=== PATIENT | male | born 1985 | race Caucasian/White ===

== ENCOUNTER → 2017-05-10 12:56 | Outpatient (POV) | payer MEDICAID, SELFPAY ==
[2017-05-10 13:09] VITALS: BP 192/110; PULSE 131; RESP 24; O2SAT 96; BMI 38.0
--- NOTE | 2017-05-10 14:15 | HMH.PMCON ---
Assessment and Plan (1) Chronic inflammatory demyelinating polyneuritis Current visit: Yes Status: Chronic Category: Medical Code(s): G61.81 - Chronic inflammatory demyelinating polyneuritis - Assessment and plan all Dx Assessment and Plan for all problems:: This patient and I had a long discussion about potential treatment options. Since the patient has not had significant relief from gabapentin or amitriptyline I believe that Lyrica 150 mg 1 p.o. twice daily will be very helpful in alleviating some of his symptoms. We also discussed about starting the process of a neurostimulator. I believe that this would be helpful for the patient's nerve pain. I answered the patient's questions we will begin the process of getting a psychological evaluation for trial. Patient is currently not on any blood thinners. Patient is not an injective candidate due to his long-term use of steroids. This note was dictated using voice recognition software and may contain errors or omissions HPI - Data of Consult Consult date: 05/10/17 Requesting Physician: Chana Pacheco APRN Primary Care Provider: Marychuy Martinez - Consult Narrative Reason for consult: Nerve pain in bilateral feet History of present illness: Mr. Escalante is a 32 year old male presents today to discuss his chronic nerve pain. Patient has been diagnosed with chronic inflammatory demyelinating polyneuropathy. 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 Patient states that most of his pain is shocklike with numbness and tingling and loss of sensation. Patient states it is in his bilateral feet and at times his hands. Patient's last episode Guyon Hector? was in 2016. Patient is interested in interventional means of controlling his pain. Patient is currently taking gabapentin 600 mg 3 times daily. And has been doing so for quite a while. He states it does help his pain however it does not alleviated enough for him to have restful night sleep. Patient also has some anxiety and takes BuSpar for this. Patient rates his pain an 8 out of 10. Patient states that walking increases his pain while his medication decreases his pain. CC: Chana Pacheco APRN [facility] History I have reviewed the patient's past medical history: Yes Comment: CIDP, anxiety Other Surgeries: Yes: Other Comment: Ankle, arm, knee - *Social History Educational Level: Attended High School Smoking Status: Current every day smoker Tobacco Type: cigarettes # Packs/Day (cigarettes): 1 Alcohol Intake: never Occupational Status: disabled - Psychiatric History Expresses thoughts of harming self/others: None Suicide Plan Description: No Plan *Family Hx:: Diabetes, Heart Attack Review of Systems - Review of Systems ROS General: no recent weight change, no fever, no sleep disturbances Respiratory: no cough, no shortness of air, no recurring pulmonary infections Cardiovascular/Peripheral Vascular: No chest pain, No palpitations, no edema, no shortness of breath. Gastrointestinal: no incontinence, normal bowel movements reported Genitourinary: no incontinence Musculoskeletal: Bilateral leg pain Psychiatric: normal mood/ affect, anxiety Neurological: [denies weakness in extremities], [denies balance issues] Meds Home Medications Medication Instructions Recorded Confirmed Type Citalopram Hydrobromide [Celexa 7.5 mg PO BID 05/10/17 05/10/17 History 10mg Tablet] Gabapentin [Neurontin 600mg 600 mg PO BID 05/10/17 05/10/17 History tablet] Naproxen [Naproxen] 500 mg PO BID 05/10/17 05/10/17 History Nortriptyline HCl [Nortriptyline 150 mg PO DAILY 05/10/17 05/10/17 History HCl] Pantoprazole Sodium [Protonix 40mg 40 mg PO DAILY 05/10/17 05/10/17 History tablet] predniSONE [Deltasone 20mg 20 mg PO DAILY 05/10/17 05/10/17 History tablet] Allergies Allergy/AdvReac Type Severity Reaction Status Date / Time No Known Allergies Allergy Verified 0
--- NOTE | 2017-05-10 14:18 | P.CONS_ITS ---
Assessment and Plan (1) Chronic inflammatory demyelinating polyneuritis Current visit: Yes Status: Chronic Category: Medical Code(s): G61.81 - Chronic inflammatory demyelinating polyneuritis - Assessment and plan all Dx Assessment and Plan for all problems:: This patient and I had a long discussion about potential treatment options. Since the patient has not had significant relief from gabapentin or amitriptyline I believe that Lyrica 150 mg 1 p.o. twice daily will be very helpful in alleviating some of his symptoms. We also discussed about starting the process of a neurostimulator. I believe that this would be helpful for the patient's nerve pain. I answered the patient's questions we will begin the process of getting a psychological evaluation for trial. Patient is currently not on any blood thinners. Patient is not an injective candidate due to his long-term use of steroids. This note was dictated using voice recognition software and may contain errors or omissions HPI - Data of Consult Consult date: 05/10/17 Requesting Physician: Chana Pacheco APRN Primary Care Provider: Marychuy Martinez - Consult Narrative Reason for consult: Nerve pain in bilateral feet History of present illness: Mr. Escalante is a 32 year old male presents today to discuss his chronic nerve pain. Patient has been diagnosed with chronic inflammatory demyelinating polyneuropathy. 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 Patient states that most of his pain is shocklike with numbness and tingling and loss of sensation. Patient states it is in his bilateral feet and at times his hands. Patient's last episode Guyon Hector? was in 2016. Patient is interested in interventional means of controlling his pain. Patient is currently taking gabapentin 600 mg 3 times daily. And has been doing so for quite a while. He states it does help his pain however it does not alleviated enough for him to have restful night sleep. Patient also has some anxiety and takes BuSpar for this. Patient rates his pain an 8 out of 10. Patient states that walking increases his pain while his medication decreases his pain. CC: Chana Pacheco APRN [facility] History I have reviewed the patient's past medical history: Yes Comment: CIDP, anxiety Other Surgeries: Yes: Other Comment: Ankle, arm, knee - *Social History Educational Level: Attended High School Smoking Status: Current every day smoker Tobacco Type: cigarettes # Packs/Day (cigarettes): 1 Alcohol Intake: never Occupational Status: disabled - Psychiatric History Expresses thoughts of harming self/others: None Suicide Plan Description: No Plan *Family Hx:: Diabetes, Heart Attack Review of Systems - Review of Systems ROS General: no recent weight change, no fever, no sleep disturbances Respiratory: no cough, no shortness of air, no recurring pulmonary infections Cardiovascular/Peripheral Vascular: No chest pain, No palpitations, no edema, no shortness of breath. Gastrointestinal: no incontinence, normal bowel movements reported Genitourinary: no incontinence Musculoskeletal: Bilateral leg pain Psychiatric: normal mood/ affect, anxiety Neurological: [denies weakness in extremities], [denies balance issues] Meds Home Medications Medication Instructions Recorded Confirmed Type Citalopram Hydrobromide [Celexa 7.5 mg PO BID 05/10/17 05/10/17 History 10mg Tablet] Gabapentin [Neurontin 600mg 600 mg PO BID 05/10/17 05/10/17 History tablet]
--- NOTE | 2017-05-12 14:05 | PC.PHONENOTE ---
05/10/17-called in RX for Lyrica 150mg BID x2 weeks to [facility] day
== END ==
PROVIDERS: PCP Nurse Practitioner; Visit Provider Clinical Nurse Specialist Family Health
DX: G61.81 Chronic inflammatory demyelinating polyneuritis (principal)
CPT/HCPCS: 99202

== ENCOUNTER → 2017-08-15 09:59 | Outpatient (CLI) | payer MEDICAID, SELFPAY ==
--- NOTE | 2017-08-15 10:00 | XR_ITS ---
XR DEXA axial skeleton HISTORY: ITS.REASON: osteoporosis ORDERING PHYSICIAN: Susan Mae MD PATIENT AGE: 32 years COMPARISON: None FINDINGS: The BMD measured at the AP Spine L1-L4 is 0.948 g/cm squared with a T score of -2.3. This is considered Osteopenic according to the World Health Organization criteria. Fracture risk is High. Treatment is advised. The density of the hips has a T score of -0.8 IMPRESSION: Osteopenia with moderate fracture risk. Recommend treatment and follow-up exam July 2019
== END ==
PROVIDERS: PCP Nurse Practitioner; Visit Provider Specialist
DX: M81.0 Age-related osteoporosis without current pathological fracture (principal)
CPT/HCPCS: 77080

== ENCOUNTER → 2017-08-15 10:25 | Outpatient (POV) | payer MEDICAID, SELFPAY | PROVIDERS: PCP Nurse Practitioner; Visit Provider Specialist | DX: G61.81 Chronic inflammatory demyelinating polyneuritis (principal); G62.9 Polyneuropathy, unspecified; Z86.69 Personal history of other diseases of the nervous system and sense organs | CPT/HCPCS: 95886; 95911 ==

== ENCOUNTER → 2018-04-18 17:14 | Outpatient (CLI) | payer MEDICAID, SELFPAY ==
[2018-04-24 14:16] LABS: Gabapentin,Urine >800.0 ug/mL (.)
== END ==
PROVIDERS: Visit Provider Emergency Medicine
DX: Z79.899 Other long term (current) drug therapy (principal)
CPT/HCPCS: 80307